=== PATIENT | female | born 1975 | race Caucasian/White ===

== ENCOUNTER 2017-01-08 18:10 | Emergency (ER) | payer BC, MEDICAID ==
[2017-01-08] MEDS ORDERED: Ondansetron 4 MG/2 ML SDV IVPUSH ONE (18:36)
[2017-01-08] MEDS ORDERED: Labetalol 20 MG/4 ML Syringe IVPUSH ONE (18:36)
[2017-01-08] MEDS ORDERED: Sodium Chloride 0.9% 10 ML Syringe FLUSH PRN (18:36)
[2017-01-08] MEDS ORDERED: HYDROmorphone 1 MG/ML Syringe IVPUSH ONE ×3 (18:44→20:10)
[2017-01-08] MEDS ORDERED: niCARdipine HCl 25 MG in Sodium Chloride 0.9% 240 ML IV SCH (20:00)
[2017-01-08] MEDS ORDERED: LORazepam 2 MG/ML MDV IVPUSH ONE (20:05)
[2017-01-08] MEDS ORDERED: levETIRAcetam 1,000 MG in Sodium Chloride 0.9% 100 ML IV ONE (20:13)
--- NOTE | 2017-01-08 20:20 | EDM.PDOC ---
ED HPI GENERAL MEDICAL PROBLEM - General Chief Complaint: General Stated Complaint: PRESSURE IN FORHEAD Time Seen by Provider: 01/08/17 18:22 Source of Information: Reports: Patient History Limitations: Reports: No Limitations - History of Present Illness INITIAL COMMENTS - FREE TEXT/NARRATIVE: History of present illness: [41-year-old female presenting with a sudden thunderclap headache while she was at the [email or web address] [place] getting ready to eat pizza. His never had a headache like this before comes in with 10 out of 10 for head pain. Denies any visual disturbances denies any focal neurologic deficits. This came on at 5:30 PM. ] Review of systems: As per history of present illness and below otherwise all systems reviewed and negative. Past medical history: As per history of present illness and as reviewed below otherwise noncontributory. Surgical history: As per history of present illness and as reviewed below otherwise noncontributory. Social history: No reported history of drug or alcohol abuse. Family history: As per history of present illness and as reviewed below otherwise noncontributory. Physical exam: HEENT: Atraumatic, normocephalic, her pupils are sluggish left is 4 mm right is 3 mm but they do react to light extraocular movements are intact Bert Coma Scale is 15 and NIH scale of 3, negative for conjunctival pallor or scleral icterus, mucous membranes moist, throat clear, neck supple, nontender, trachea midline. Lungs: Clear to auscultation, breath sounds equal bilaterally, chest nontender. Heart: S1S2, regular, negative for clicks, rubs, or JVD. Abdomen: Soft, nondistended, nontender. Negative for masses or hepatosplenomegaly. Pelvis: Stable nontender. Genitourinary: Deferred. Rectal: Deferred. Extremities: Atraumatic, negative for cords or calf pain. Neurovascular unremarkable. Neuro: Awake, alert, oriented. Cranial nerves II through XII unremarkable. Cerebellum unremarkable. Motor and sensory unremarkable throughout. Exam nonfocal. Diagnostics: [Head CT is showing an acute subarachnoid hemorrhage] Therapeutics: [We have IV fluids going were giving her a gram of Keppra we are also providing nicardipine drip IV with a goal to keep her systolic blood pressure less than 160 EKG showing a sinus rhythm with a rate of 67 no current ischemia or injury is noted, CBC complete metabolic panel and UA are pending] Impression: [Acute subarachnoid hemorrhage] Plan: [We are life flighting her to [facility] in [place] accepting. She will first be seen in the emergency department] Definitive disposition and diagnosis as appropriate pending reevaluation and review of above. 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 ED EXAM, GENERAL - Physical Exam Exam: See Below Course - Vital Signs Last Recorded V/S: Last Vital Signs Temp 34.7 C L 01/08/17 18:19 Pulse 70 01/08/17 19:52 Resp 20 01/08/17 19:36 BP 186/116 H 01/08/17 19:52 Pulse Ox 96 01/08/17 19:52 - Orders/Labs/Meds Orders: Active Orders 24 hr Category Date Time Status EKG Documentation Completion [RC] ASDIRECTED Care 01/08/17 19:46 Active Head wo Cont [CT] Stat Exams 01/08/17 18:36 Taken COMPREHENSIVE METABOLIC PN,CMP [CHEM] Stat Lab 01/08/17 19:59 Received INR,PT,PROTHROMBIN TIME [COAG] Stat Lab 01/08/17 19:59 Received UA W/MICROSCOPIC [URIN] Stat Lab 01/08/17 19:45 Uncollected Sodium Chloride 0.9% [Saline Flush] Med 01/08/17 18:36 Active 10 ml FLUSH ASDIRECTED PRN levETIRAcetam [Keppra] 1,000 mg Med 01/08/17 20:13 Ordered Sodium Chloride 0.9% [Normal Saline] 100 ml IV ONETIME niCARdipine HCl [Nicardipine HCl] 25 mg Med 01/08/17 20:00 Active Sodium Chloride 0.9% [Normal Saline] 240 ml IV TITRATE Saline Lock Insert [OM.PC] Stat Oth 01/08/17 18:36 Ordered EKG 12 Lead [EK] Stat Ther 01/08/17 19:45 Ordered Medication Orders Nicardipine HCl 25 mg/ Sodium (Chloride) 250 mls @ 50 mls/hr IV TITRATE JEN; 5 MG/HR PRN Reason: Protocol Last Titration: 01/08/17 20:13 Dose: 7.5 mg/hr, 75 mls/hr Admin: 01/08/17 19:52 Dose: 5 mg/hr, 50 mls/hr Levetiracetam 1,000 mg/ Sodium (Chloride) 110 mls @ 400 mls/hr IV ONETIME ONE Stop: 01/08/17 20:27 Sodium Chloride (Saline Flush) 10 ml FLUSH ASDIRECTED PRN PRN Reason: Keep Vein Open Last Admin: 01/08/17 18:44 Dose: 10 ml Labs: Laboratory Tests 01/08/17 Range/Units 19:59 WBC 11.2 H (4.5-11.0) K/uL RBC 4.47 (3.30-5.50) M/uL Hgb 12.9 (12.0-15.0) g/dL Hct 36.5 (36.0-48.0) % MCV 82 (80-98) fL MCH 29 (27-31) pg MCHC 35 (32-36) % Plt Count 265 (150-400) K/uL Neut % (Auto) 71 H (36-66) % Lymph % (Auto) 23 L (24-44) % Pershing % (Auto) 5 (2-6) % Eos % (Auto) 1 L (2-4) % Baso % (Auto) 0 (0-1) % Meds: Medications Generic Name Dose Route Start Last Admin Trade Name Freq PRN Reason Stop Dose Admin Nicardipine HCl 25 mg/ Sodium 250 mls @ 50 mls/hr 01/08/17 20:00 01/08/17 20: 13 Chloride IV 7.5 mg/hr TITRATE JEN 75 mls/hr Protocol Titration 5 MG/HR Levetiracetam 1,000 mg/ Sodium 110 mls @ 400 mls/hr 01/08/17 20:13 Chloride IV 01/08/17 20:27 ONETIME ONE Sodium Chloride 10 ml 01/08/17 18:36 01/08/17 18:44 Saline Flush FLUSH 10 ml ASDIRECTED PRN Administration Keep Vein Open Discontinued Medications Generic Name Dose Route Start Last Admin Trade Name Freq PRN Reason Stop Dose Admin Hydromorphone HCl 1 mg 01/08/17 18:44 01/08/17 18:53 Dilaudid IVPUSH 01/08/17 18:45 1 mg ONETIME ONE Administration Hydromorphone HCl 1 mg 01/08/17 19:38 01/08/17 19:49 Dilaudid IVPUSH 01/08/17 19:39 1 mg ONETIME ONE Administration Hydromorphone HCl 1 mg 01/08/17 20:10 Dilaudid IVPUSH 01/08/17 20:11 ONETIME ONE Labetalol HCl 20 mg 01/08/17 18:36 01/08/17 18:45 Normodyne IVPUSH 01/08/17 18:37 20 mg NOW ONE Administration Protocol Lorazepam 1 mg 01/08/17 20:05 01/08/17 20:12 Ativan IVPUSH 01/08/17 20:06 1 mg ONETIME ONE Administration Ondansetron HCl 4 mg 01/08/17 18:36 01/08/17 18:43 Zofran IVPUSH 01/08/17 18:37 4 mg ONETIME ONE Administration Departure - Departure Time of Disposition: 20:19 Disposition: Home, Self-Care 01 Condition: Fair Clinical Impression: Acute spontaneous subarachnoid intracranial hemorrhage - Discharge Information Referrals: PCP,None [Primary Care Provider] - - My Orders Last 24 Hours: My Active Orders 01/08/17 18:36 Head wo Cont [CT] Stat Sodium Chloride 0.9% [Saline Flush] 10 ml FLUSH ASDIRECTED PRN Saline Lock Insert [OM.PC] Stat 01/08/17 19:45 UA W/MICROSCOPIC [URIN] Stat EKG 12 Lead [EK] Stat 01/08/17 19:46 EKG Documentation Completion [RC] ASDIRECTED 01/08/17 19:59 COMPREHENSIVE METABOLIC PN,CMP [CHEM] Stat INR,PT,PROTHROMBIN TIME [COAG] Stat 01/08/17 20:00 niCARdipine HCl [Nicardipine HCl] 25 mg Sodium Chloride 0.9% [Normal Saline] 240 ml IV TITRATE 01/08/17 20:13 levETIRAcetam [Keppra] 1,000 mg Sodium Chloride 0.9% [Normal Saline] 100 ml IV ONETIME - Assessment/Plan Last 24 Hours: My Active Orders 01/08/17 18:36 Head wo Cont [CT] Stat Sodium Chloride 0.9% [Saline Flush] 10 ml FLUSH ASDIRECTED PRN Saline Lock Insert [OM.PC] Stat 01/08/17 19:45 UA W/MICROSCOPIC [URIN] Stat EKG 12 Lead [EK] Stat 01/08/17 19:46 EKG Documentation Completion [RC] ASDIRECTED 01/08/17 19:59 COMPREHENSIVE METABOLIC PN,CMP [CHEM] Stat INR,PT,PROTHROMBIN TIME [COAG] Stat 01/08/17 20:00 niCARdipine HCl [Nicardipine HCl] 25 mg Sodium Chloride 0.9% [Normal Saline] 240 ml IV TITRATE 01/08/17 20:13 levETIRAcetam [Keppra] 1,000 mg Sodium Chloride 0.9% [Normal Saline] 100 ml IV ONETIME
[2017-01-08 20:21] VITALS: BP 182/104
== END 2017-01-08 21:36 | disposition home or self-care (01) ==
LOC: JP.ED 18:10
DX: I60.7 Nontraumatic subarachnoid hemorrhage from unspecified intracranial artery (principal); I10 Essential (primary) hypertension; F17.210 Nicotine dependence, cigarettes, uncomplicated; Z88.1 Allergy status to other antibiotic agents; Z88.5 Allergy status to narcotic agent; Z79.899 Other long term (current) drug therapy; Z90.49 Acquired absence of other specified parts of digestive tract; Z98.890 Other specified postprocedural states
CPT/HCPCS: 36415; 70450; 80053; 85025; 85610; 93005; 96365; 96366; 96375; 99285; J1170; J1953; J2060; J2405; J7030; J7050

== ENCOUNTER 2017-04-25 10:36 | Emergency (ER) | payer BC ==
[2017-04-25] MEDS ORDERED: Ondansetron 4 MG/2 ML SDV IVPUSH ONE (11:10)
[2017-04-25] MEDS ORDERED: HYDROmorphone 0.5 MG/0.5 ML Syringe IVPUSH ONE (11:10)
[2017-04-25] MEDS ORDERED: Sodium Chloride 0.9% 1,000 ML IV SCH ×2 (11:15→13:15)
--- NOTE | 2017-04-25 11:18 | EDM.PDOC ---
ED HPI GENERAL MEDICAL PROBLEM - General Chief Complaint: Abdominal Pain Stated Complaint: HIGH BP Time Seen by Provider: 04/25/17 11:16 Source of Information: Reports: Patient History Limitations: Reports: No Limitations - History of Present Illness INITIAL COMMENTS - FREE TEXT/NARRATIVE: pt arrived with pain in the rt lower abdoman. She had been seen at the clinic and was sent here becauseof the degree of pain. She had been found to have alot blood in her urine. She has had a previous kidney stone. The pt did vomit last nite. Her pain started yesterday am. She at first thought it was her period and then it kept getting worse and worse. Onset: Other ( yesterday. ) Duration: Hour(s): Location: Reports: Abdomen Associated Symptoms: Reports: No Other Symptoms, Nausea/Vomiting Right Lower Abdomen Pain Score (Numeric/FACES): 10 - Related Data Allergies Allergy/AdvReac Type Severity Reaction Status Date / Time amoxicillin Allergy Hives Verified 04/25/17 10:49 codeine Allergy Hives Verified 04/25/17 10:49 Home Meds: Home Meds Esomeprazole [NexIUM] 20 mg PO Q48H 10/10/14 [History] Folic Acid/Multivit-Min/Lutein [Multi-Vitamin Gummies] 2 tab PO DAILY 04/25/17 [ History] Losartan [Cozaar] 1 tab PO DAILY 04/25/17 [History] Magnesium 250 mg PO DAILY 04/25/17 [History] Past Medical History HEENT History: Reports: Impaired Vision Cardiovascular History: Reports: Hypertension Genitourinary History: Reports: Renal Calculus Other Genitourinary History: stent removed 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: - Past Surgical History GI Surgical History: Reports: Appendectomy Female Surgical History: Reports: Section Other Musculoskeletal Surgeries/Procedures:: bilateral hip Social & Family History - Tobacco Use Smoking Status *Q: Former Smoker Years of Tobacco use: 20 Packs/Tins Daily: 0.2 Used Tobacco, but Quit: Yes Month Tobacco Last Used: December Second Hand Smoke Exposure: No - Caffeine Use Caffeine Use: Reports: Coffee, Tea - Alcohol Use Days Per Week of Alcohol Use: 0 - Recreational Drug Use Recreational Drug Use: No ED ROS GENERAL - Review of Systems Review Of Systems: See Below Constitutional: Reports: No Symptoms HEENT: Reports: No Symptoms Respiratory: Reports: No Symptoms Cardiovascular: Reports: No Symptoms Endocrine: Reports: No Symptoms GI/Abdominal: Reports: Abdominal Pain, Nausea, Vomiting, Other (pt has pain on her rt side. ) : Reports: No Symptoms Musculoskeletal: Reports: No Symptoms ED EXAM, GI/ABD - Physical Exam Exam: See Below Text/Narrative:: pt arrived with increased pain in the rt lower abdoman. Exam Limited By: No Limitations General Appearance: Alert, Moderate Distress Eyes: Bilateral: Normal Appearance, EOMI Ears: Normal TMs Throat/Mouth: Normal Inspection Head: Atraumatic Neck: Normal Inspection Respiratory/Chest: No Respiratory Distress Cardiovascular: Regular Rate, Rhythm GI/Abdominal Exam: Soft, Tender, Other (pt has mild tenderness but no true guarding. ) (Female) Exam: Deferred Rectal (Female) Exam: Deferred Back Exam: Normal Inspection Extremities: Normal Inspection Course - Vital Signs Last Recorded V/S: Last Vital Signs Temp 36.1 C 04/25/17 10:58 Pulse 54 L 04/25/17 10:58 Resp 16 04/25/17 10:58 BP 184/110 H 04/25/17 10:58 Pulse Ox 99 04/25/17 10:58 - Orders/Labs/Meds Orders: Active Orders 24 hr Category Date Time Status Abdomen Pelvis wo Cont [CT] Stat Exams 04/25/17 11:11 Taken CULTURE URINE [RM] Stat Lab 04/25/17 13:04 Uncollected UA W/MICROSCOPIC [URIN] Urgent Lab 04/25/17 13:03 Uncollected Levofloxacin/Dextrose 5%-Water [Levaquin in D5W 500 MG/ Med 04/25/17 13:06 Active 100 ML] 500 mg Premix Bag 1 bag IV ONETIME Sodium Chloride 0.9% [Normal Saline] 1,000 ml Med 04/25/17 11:15 Active IV ASDIRECTED Sodium Chloride 0.9% [Normal Saline] 1,000 ml Med 04/25/17 13:15 Active IV ASDIRECTED Medication Orders Sodium Chloride (Normal Saline) 1,000 mls @ 999 mls/hr IV ASDIRECTED JEN Last Admin: 04/25/17 11:28 Dose: 999 mls/hr Sodium Chloride (Normal Saline) 1,000 mls @ 999 mls/hr IV ASDIRECTED JEN Last Admin: 04/25/17 13:26 Dose: 999 mls/hr Levofloxacin/Dextrose 500 mg/ (Premix) 100 mls @ 100 mls/hr IV ONETIME ONE Stop: 04/25/17 14:05 Last Admin: 04/25/17 13:26 Dose: 100 mls/hr Meds: Medications Generic Name Dose Route Start Last Admin Trade Name Freq PRN Reason Stop Dose Admin Sodium Chloride 1,000 mls @ 999 mls/hr 04/25/17 11:15 04/25/17 11:28 Normal Saline IV 999 mls/hr ASDIRECTED JEN Administration Sodium Chloride 1,000 mls @ 999 mls/hr 04/25/17 13:15 04/25/17 13:26 Normal Saline IV 999 mls/hr ASDIRECTED JEN Administration Levofloxacin/Dextrose 500 mg/ 100 mls @ 100 mls/hr 04/25/17 13:06 04/25/17 13 :26 Premix IV 04/25/17 14:05 100 mls/hr ONETIME ONE Administration Discontinued Medications Generic Name Dose Route Start Last Admin Trade Name Vidal PRN Reason Stop Dose Admin Hydromorphone HCl 0.5 mg 04/25/17 11:10 04/25/17 11:30 Dilaudid IVPUSH 04/25/17 11:11 0.5 mg ONETIME ONE Administration Ketorolac Tromethamine 30 mg 04/25/17 13:10 04/25/17 13:25 Toradol IVPUSH 04/25/17 13:11 30 mg ONETIME ONE Administration Ondansetron HCl 4 mg 04/25/17 11:10 04/25/17 11:29 Zofran IVPUSH 04/25/17 11:11 4 mg ONETIME ONE Administration Tamsulosin HCl 0.4 mg 04/25/17 13:04 04/25/17 13:25 Flomax PO 04/25/17 13:05 0.4 mg ONETIME ONE Administration - Re-Assessments/Exams Free Text/Narrative Re-Assessment/Exam: 04/25/17 13:15 pt had a normal wbc. Her urine had allot of rbcs. She rated her pain at a ten. Departure - Departure Time of Disposition: 13:16 Disposition: Home, Self-Care 01 Condition: Fair Clinical Impression: Ureteral stone, UTI (urinary tract infection), Ovarian cyst - Discharge Information Referrals: Bradley Burger, THERAPEUTIC RADIOLOGIST [Primary Care Provider] - Forms: ED Department Discharge Care Plan Goals: push fluids, flomax .4 1 tab daily, cipro 500mg bid, torodol 10mg q6h prn for pain, percocet 5/325 1 tab q6h prn for pain unrelieved by torodol. Appt with Bradley on Thursday, strain all urine. - My Orders Last 24 Hours: My Active Orders 04/25/17 11:11 Abdomen Pelvis wo Cont [CT] Stat 04/25/17 11:15 Sodium Chloride 0.9% [Normal Saline] 1,000 ml IV ASDIRECTED 04/25/17 13:03 UA W/MICROSCOPIC [URIN] Urgent 04/25/17 13:04 CULTURE URINE [RM] Stat 04/25/17 13:06 Levofloxacin/Dextrose 5%-Water [Levaquin in D5W 500 MG/100 ML] 500 mg Premix Bag 1 bag IV ONETIME 04/25/17 13:15 Sodium Chloride 0.9% [Normal Saline] 1,000 ml IV ASDIRECTED - Assessment/Plan Last 24 Hours: My Active Orders 04/25/17 11:11 Abdomen Pelvis wo Cont [CT] Stat 04/25/17 11:15 Sodium Chloride 0.9% [Normal Saline] 1,000 ml IV ASDIRECTED 04/25/17 13:03 UA W/MICROSCOPIC [URIN] Urgent 04/25/17 13:04 CULTURE URINE [RM] Stat 04/25/17 13:06 Levofloxacin/Dextrose 5%-Water [Levaquin in D5W 500 MG/100 ML] 500 mg Premix Bag 1 bag IV ONETIME 04/25/17 13:15 Sodium Chloride 0.9% [Normal Saline] 1,000 ml IV ASDIRECTED
[2017-04-25] MEDS ORDERED: Tamsulosin 0.4 MG Cap.ER PO ONE (13:04)
[2017-04-25] MEDS ORDERED: Levofloxacin/Dextrose 5%-Water 500 MG in Premix Bag 1 BAG IV ONE (13:06)
[2017-04-25] MEDS ORDERED: Ketorolac 30 MG/ML SDV IVPUSH ONE (13:10)
[2017-04-25 14:44] VITALS: BP 147/96
== END 2017-04-25 15:09 | disposition home or self-care (01) ==
LOC: JP.ED 10:36
DX: N20.2 Calculus of kidney with calculus of ureter (principal); N39.0 Urinary tract infection, site not specified; N83.202 Unspecified ovarian cyst, left side; N83.201 Unspecified ovarian cyst, right side; Z88.1 Allergy status to other antibiotic agents; Z88.5 Allergy status to narcotic agent; Z79.899 Other long term (current) drug therapy; Z87.891 Personal history of nicotine dependence
CPT/HCPCS: 74176; 81001; 87086; 96361; 96365; 96375; 99284; A9270; J1170; J1885; J1956; J2405; J7040

== ENCOUNTER 2017-05-18 08:39 | Emergency (ER) | payer BC ==
[2017-05-18 09:11] VITALS: BP 151/92
[2017-05-18] MEDS ORDERED: Ketorolac 60 MG/2 ML SDV IM ONE (09:19)
--- NOTE | 2017-05-18 09:24 | EDM.PDOC ---
ED HPI GENERAL MEDICAL PROBLEM - General Chief Complaint: Genitourinary Problem Stated Complaint: KIDNEY STONES Time Seen by Provider: 05/18/17 09:10 Source of Information: Reports: Patient History Limitations: Reports: No Limitations - History of Present Illness INITIAL COMMENTS - FREE TEXT/NARRATIVE: 41-year-old female with ongoing symptomatic nephrolithiasis on the right side. She has had 2 CT scans this month which shows a migrating 6 mm stone in the right ureter. She is usually able to control her pain with oral medications but over the past 12 hours she's had a lot of nausea, vomiting, cannot hold down her pain medication and is hoping for an injection of Toradol. She is going to be ready to go to her urologist in 2-3 days if symptoms persist. No fevers or chills. Location: Reports: Other (Right flank) Quality: Reports: Ache, Stabbing Severity: Moderate Associated Symptoms: Reports: Nausea/Vomiting. Denies: Fever/Chills Right Flank Pain Score (Numeric/FACES): 10 - Related Data Allergies Allergy/AdvReac Type Severity Reaction Status Date / Time amoxicillin Allergy Hives Verified 05/18/17 08:58 codeine Allergy Hives Verified 05/18/17 08:58 Home Meds: Home Meds Esomeprazole [NexIUM] 20 mg PO Q48H 10/10/14 [History] Folic Acid/Multivit-Min/Lutein [Multi-Vitamin Gummies] 2 tab PO DAILY 04/25/17 [ History] Losartan [Cozaar] 1 tab PO DAILY 04/25/17 [History] Magnesium 250 mg PO DAILY 04/25/17 [History] Ondansetron [Zofran ODT] 4 mg PO Q6H PRN 05/18/17 [History] Tamsulosin [Tamsulosin 24 Hr] 0.4 mg PO DAILY 05/18/17 [History] oxyCODONE HCl/Acetaminophen [Endocet 5-325 Tablet] 1 each PO Q4HR PRN 05/18/17 [ History] Past Medical History HEENT History: Reports: Impaired Vision Cardiovascular History: Reports: Hypertension Genitourinary History: Reports: Renal Calculus Other Genitourinary History: stent removed 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: Neurological History: Reports: Other (See Below) Other Neuro History: BRAIN ANUEURYSM - Past Surgical History GI Surgical History: Reports: Appendectomy Female Surgical History: Reports: Section Other Neurological Surgeries/Procedures: CLIP IN BRAIN Other Musculoskeletal Surgeries/Procedures:: bilateral hip Social & Family History - Tobacco Use Smoking Status *Q: Former Smoker Years of Tobacco use: 20 Packs/Tins Daily: 0.2 Used Tobacco, but Quit: Yes Month Tobacco Last Used: Dec 2016 Second Hand Smoke Exposure: No - Caffeine Use Caffeine Use: Reports: Coffee - Alcohol Use Days Per Week of Alcohol Use: 0 - Recreational Drug Use Recreational Drug Use: No ED ROS GENERAL - Review of Systems Review Of Systems: See Below Constitutional: Denies: Fever, Chills Respiratory: Denies: Shortness of Breath GI/Abdominal: Reports: Nausea, Vomiting. Denies: Abdominal Pain : Reports: Flank Pain. Denies: Dysuria Skin: Reports: No Symptoms ED EXAM, RENAL/ - Physical Exam Exam: See Below Exam Limited By: No Limitations General Appearance: Alert, No Apparent Distress (Patient is uncomfortable but not distressed) Respiratory/Chest: No Respiratory Distress Cardiovascular: Regular Rate, Rhythm GI/Abdominal: Tender (Some vague discomfort with palpation of the right upper abdomen) Back Exam: CVA Tenderness (R) (Mild discomfort with right CVA percussion). No: CVA Tenderness (L) Neurological: Alert, Oriented Skin Exam: Warm, Dry Course - Vital Signs Last Recorded V/S: Last Vital Signs Temp 95.1 F L 05/18/17 09:06 Pulse 73 05/18/17 09:11 Resp 16 05/18/17 09:11 BP 151/92 H 05/18/17 09:11 Pulse Ox 98 05/18/17 09:11 - Orders/Labs/Meds Meds: Medications Discontinued Medications Generic Name Dose Route Start Last Admin Trade Name Freq PRN Reason Stop Dose Admin Ketorolac Tromethamine 60 mg 05/18/17 09:19 05/18/17 09:22 Toradol IM 05/18/17 09:20 60 mg ONETIME ONE Administration - Re-Assessments/Exams Free Text/Narrative Re-Assessment/Exam: 05/18/17 09:24 60 mg of IM Toradol was given. Patient will recheck in 24-48 hours if not improving satisfactorily, and will resume her oral medications. Departure - Departure Time of Disposition: 09:31 Disposition: Home, Self-Care Condition: Fair Clinical Impression: Renal colic on right side - Discharge Information Instructions: Kidney Stones, [id number] Referrals: Bradley Burger NP [Primary Care Provider] - Forms: ED Department Discharge Care Plan Goals: Resume your regular medications as tolerated. Return if symptoms are worsening despite treatment.
== END 2017-05-18 09:39 | disposition home or self-care (01) ==
LOC: JP.ED 08:39
DX: N23 Unspecified renal colic (principal); I10 Essential (primary) hypertension; Z87.891 Personal history of nicotine dependence; Z79.899 Other long term (current) drug therapy; Z88.1 Allergy status to other antibiotic agents; Z88.5 Allergy status to narcotic agent
CPT/HCPCS: 96372; 99283; J1885